=== PATIENT | female | born 1955 | race Caucasian/White ===

== ENCOUNTER → 2017-11-13 | Outpatient (REF) | payer OTHER ==
[~2017-11-13] MED LIST: ACCUPRIL5 MG PO; AMLODIPINE2.5 MG PO; ASPIRIN EC81 MG PO; BACTRIM DS1 TAB PO; DIOVAN HC1 PO; MULTI VIT PO; NEXIUM40 M1 PO; ZANTAC 150 MAX150 MG PO; ZITHROMAX500 MG PO; ZYRTEC10 M3 PO
[2017-11-13 08:16] LABS: ANION GAP 13 (6-22 (CALC)); BUN 15 mg/dL (8-23); BUN/CREATININE RATIO 23 (12-20 (CALC)); CARBON DIOXIDE 29 mmol/l (22-30); CHLORIDE 104 mmol/l (95-108); CREATININE 0.6 mg/dL (0.5-1.0); GFR > 60 ML/MIN (>=60 (CALC)); GFR FOR AFR.AMER. > 60 ML/MIN (>=60 (CALC)); POTASSIUM 4.9 mmol/l (3.5-5.1); SODIUM 141 mmol/l (137-146)
== END | disposition home or self-care (01) | DRG 641 ==
LOC: LAB 07:20
PROVIDERS: ATTEND Specialist
DX: R73.01 Impaired fasting glucose (principal); I10 Essential (primary) hypertension

== ENCOUNTER → 2018-03-29 | Outpatient (REF) | payer OTHER | END | disposition home or self-care (01) | DRG 690 | LOC: LABSPEC 10:11 → LAB 10:11 | PROVIDERS: ATTEND Urology | DX: N39.0 Urinary tract infection, site not specified (principal) ==

== ENCOUNTER → 2018-04-23 | Outpatient (REF) ==
[2018-04-23 09:31] LABS: CHOLESTEROL HDL RATIO 3.6 (<4.4 (CALC))
== END | disposition home or self-care (01) | DRG 951 ==
LOC: LAB 07:49
PROVIDERS: ATTEND Family Medicine
DX: Z02.6 Encounter for examination for insurance purposes (principal)

== ENCOUNTER 2018-12-20 17:20 | Emergency (ER) | payer OTHER ==
[~2018-12-20] VITALS: Ht 152.4 cm; Wt 102.0 kg
[2018-12-20] MEDS ORDERED: SPIRONOLACT25 MG PO (17:46)
[2018-12-20] MEDS ORDERED: EZETIMIBE10 MG PO (17:47)
[2018-12-20] MEDS ORDERED: VITAMIN D31000 UNI1 PO (17:48)
[2018-12-20] MEDS ORDERED: METFORMIN1000 MG PO (17:48)
[2018-12-20] MEDS ORDERED: FLONASE AL50 MCG/ACT (17:48)
[2018-12-20] MEDS ORDERED: HYDROCO/APAP1 TA9 PO (18:51)
[2018-12-20 18:59] VITALS: BP 160/65
== END 2018-12-20 18:59 | disposition home or self-care (01) | DRG 563 ==
LOC: ED 17:20
DX: S42.291A Other displaced fracture of upper end of right humerus, initial encounter for closed fracture (principal); W18.31XA Fall on same level due to stepping on an object, initial encounter

== ENCOUNTER 2023-01-28 08:44 | Emergency (ER) | payer MEDICARE, OTHER ==
[2023-01-28] VITALS (11 sets, daily range): BP systolic 134–167; BP diastolic 56–97
[~2023-01-28] VITALS: Ht 152.4 cm; Wt 103.0 kg
[~2023-01-28 08:44] MED LIST changes: +ALBUTEROL SUL0.083 % IN; +AZELASTINE HCL0.1 % NAB; +AZITHROMYCIN500 MG PO; +CLEOCIN150 M1; +CLINDAMYCIN300 M1 PO; +ESTRADIOL10 MCG VA; +EZETIMIBE10 MG PO; +FAMOTIDINE20 M3 PO; +FLONASE AL50 MCG/ACT; +HYDROCO/APAP1 TA9 PO; +LEVOFLOXACIN750 MG PO; +LOSARTAN POTASS50 MG PO; +MEDDOSEPAK PO; +METFORMIN HCL500 M2 PO; +METFORMIN1000 MG PO; +NEBULIZER KIT/TUBING IN; +ROBITUSSIN AC10 ML PO; +SINGULAIR10 MG PO; +SPIRONOLACT25 MG PO; +SYMBICORT1 AE1 IN; +TAM75CAP PO; +VITAMIN D31000 UNI1 PO; +[UNRECOGNIZED DRUG - OTHER] NAB
[2023-01-28 09:18] LABS: BASO% 0.3 % (0-3); EOS% 1.5 % (0-8); HEMATOCRIT 38.3 % (37.0-47.0); HEMOGLOBIN 12.1 g/dl (12.0-16.0); IMMATURE GRANULOCYTES 0.3 % (0.0-5.0); LYMPH% 12.1 % (15-41); MEAN CELL VOLUME 84.5 fL CALC (80.0-100.0); MEAN CORPUSCULAR HGB 26.7 pG CALC (26.0-32.0); MEAN CORPUSCULAR HGB CONC 31.6 g/dL CAL (32.0-36.0); MONO% 5.7 % (2-13); NEUT# 12.58 thou/uL (2.00-7.15); NEUT% 80.1 % (42-76); RED BLOOD COUNT 4.53 mill/uL (4.20-5.60); RED CELL DISTRI WIDTH 15.1 % (11.5-15.5)
[2023-01-28 09:34] LABS: ALBUMIN 4.2 g/dL (3.2-5.0); ALKALINE PHOSPHATASE 131 u/l (38-126); BUN 9 mg/dL (8-23); BUN/CREATININE RATIO 13 (12-20 (CALC)); CHLORIDE 103 mmol/l (95-108); CREATININE 0.7 mg/dL (0.5-1.0); GFR FOR AFR.AMER. > 60 ML/MIN (>=60 (CALC)); GFR OTHER RACES > 60 ML/MIN (>=60 (CALC)); SGOT/AST 31 u/l (9-36); SODIUM 137 mmol/l (137-146); TOTAL PROTEIN 7.7 g/dL (6.3-8.2)
[2023-01-28 09:35] LABS: ANION GAP 16 (6-22 (CALC)); BILIRUBIN, TOTAL 0.9 mg/dL (0.02-1.3); CARBON DIOXIDE 22 mmol/l (22-30)
[2023-01-28] MEDS ORDERED: LEVAQUIN750 M1 PO (10:35)
[2023-01-28] MEDS ORDERED: IPRATROPIU0.5 MG/3 M IN (10:50)
[2023-02-02] MEDS ORDERED: MUPIROCIN2 % EX (12:01)
== END 2023-01-28 11:11 | disposition home or self-care (01) ==
LOC: ED 08:44
PROVIDERS: Family Medicine
DX: J18.9 Pneumonia, unspecified organism (principal); I10 Essential (primary) hypertension; E66.9 Obesity, unspecified; Z20.822 Contact with and (suspected) exposure to COVID-19